=== PATIENT | male | born 1965 | race Caucasian/White ===

== ENCOUNTER 2018-04-23 14:12 | Inpatient (IN) | payer OTHER ==
[~2018-04-23] VITALS: Ht 175.3 cm; Wt 81.6 kg
[2018-04-23] VITALS (7 sets, daily range): BP systolic 73–108; BP diastolic 43–74
[2018-04-23] MEDS ORDERED: IV NORMAL SALINE 1,000ML 1,000 ML IV ONE (14:15)
[2018-04-23] MEDS ORDERED: LORazepam 2 MG/ML VIAL IV ONE (14:15)
[2018-04-23 14:30] LABS: BASO # 0.1 x10^3/uL (0.0-0.2); BASO % 1 % (0-3); EOS # 0.1 x10^3/uL (0.0-0.7); EOS % 2 % (0-3); HEMATOCRIT 46.7 % (39.0-53.0); HEMOGLOBIN 15.8 g/dL (13.0-17.5); LYMPH % 37 % (24-48); MEAN CORPUSCULAR HEMOGLOBIN 29 pg (25-35); MEAN CORPUSCULAR HGB CONC 34 g/dL (31-37); MEAN CORPUSCULAR VOLUME 87 fL (79-100); MONO # 0.4 x10^3/uL (0.0-1.1); MONO % 8 % (0-9); NEUT # 2.8 x10^3uL (1.8-7.7); NEUT % 52 % (31-73); PLATELET COUNT 245 x10^3/uL (140-400); RED BLOOD COUNT 5.38 x10^6/uL (4.30-5.70); RED CELL DISTRIBUTION WIDTH 14.3 % (11.5-14.5); WHITE BLOOD COUNT 5.4 x10^3/uL (4.0-11.0)
[2018-04-23] MEDS ORDERED: levETIRAcetam 500 MG/5 ML VIAL IV ONE (14:39)
[2018-04-23] MEDS ORDERED: IV NORMAL SALINE 1,000ML 1,000 ML IV SCH (14:39)
[2018-04-23] MEDS ORDERED: IV NORMAL SALINE 100ML 100 ML ONE (14:39)
--- NOTE | 2018-04-23 14:39 | PHYS DOC ---
Past History Past Medical History: GERD, Seizure Past Surgical History: Other Alcohol Use: Occasionally Drug Use: None Adult General Chief Complaint Chief Complaint: SEIZURE HPI HPI Patient is a 53 year old male who presents with complaining of seizure. Patient had new-onset of seizure 8 days ago while he was resident of [place] with having several episodes of tonic-clonic seizure with and without loss of consciousness. Patient was admitted at Hospital and had unremarkable CT head and EEG and labs and started on Keppra. Patient had few episode of seizure intermittently since discharging from hospital but today had 4 episodes of seizure including 1 at arrival to ER. Patient did not receive consciousness or urine and bowel incontinence states he feels the seizure coming with feeling of nausea. Patient denies headache and focal neurodeficit. Patient had lack of sleep last night. Review of Systems Review of Systems Constitutional: Denies fever or chills [] Eyes: Denies change in visual acuity, redness, or eye pain [] HENT: Denies nasal congestion or sore throat [] Respiratory: Denies cough or shortness of breath [] Cardiovascular: No additional information not addressed in HPI [] GI: Denies abdominal pain, nausea, vomiting, bloody stools or diarrhea [] : Denies dysuria or hematuria [] Musculoskeletal: Denies back pain or joint pain [] Integument: Denies rash or skin lesions [] Neurologic: Denies headache, focal weakness or sensory changes [] Endocrine: Denies polyuria or polydipsia [] All other systems were reviewed and found to be within normal limits, except as documented in this note. Current Medications Current Medications Current Medications Medications (Trade) Dose Ordered Sig/Chantal Start Time Stop Time Status Last Admin Dose Admin Lorazepam (Ativan) 2 mg 1X ONCE 04/23/18 14:15 04/23/18 14:23 DC 04/23/18 14:21 2 MG Sodium Chloride 1,000 ml @ 1,000 mls/hr 1X ONCE 04/23/18 14:15 04/23/18 15:14 04/23/18 14:20 1,000 MLS/HR Allergies Allergies Allergies Coded Allergies Type Severity Reaction Last Updated Verified fentanyl Allergy Unknown 04/23/18 Yes Physical Exam Physical Exam Constitutional: Well developed, well nourished, mild distress, non-toxic appearance. [] HENT: Normocephalic, atraumatic, bilateral external ears normal, oropharynx moist, no oral exudates, nose normal. [] Eyes: PERRLA, EOMI, conjunctiva normal, no discharge. [] Neck: Normal range of motion, no tenderness, supple, no stridor. [] Cardiovascular:Heart rate regular rhythm, no murmur [] Lungs & Thorax: Bilateral breath sounds clear to auscultation [] Abdomen: Bowel sounds normal, soft, no tenderness, no masses, no pulsatile masses. [] Skin: Warm, dry, no erythema, no rash. [] Back: No tenderness, no CVA tenderness. [] Extremities: No tenderness, no cyanosis, no clubbing, ROM intact, no edema. [] Neurologic: Alert and oriented X 3, normal motor function, normal sensory function, no focal deficits noted. [] Psychologic: Affect normal, judgement normal, mood normal. [] Current Patient Data Vital Signs Vital Signs Date Time Temp Pulse Resp B/P (MAP) Pulse Ox O2 Delivery O2 Flow Rate FiO2 04/23/18 14:18 97.7 76 18 100 Room Air Lab Results Laboratory Tests Test 04/23/18 14:15 White Blood Count 5.4 x10^3/uL (4.0-11.0) Red Blood Count 5.38 x10^6/uL (4.30-5.70) Hemoglobin 15.8 g/dL (13.0-17.5) Hematocrit 46.7 % (39.0-53.0) Mean Corpuscular Volume 87 fL (79-100) Mean Corpuscular Hemoglobin 29 pg (25-35) Mean Corpuscular Hemoglobin Concent 34 g/dL (31-37) Red Cell Distribution Width 14.3 % (11.5-14.5) Platelet Count 245 x10^3/uL (140-400) Neutrophils (%) (Auto) 52 % (31-73) Lymphocytes (%) (Auto) 37 % (24-48) Monocytes (%) (Auto) 8 % (0-9) Eosinophils (%) (Auto) 2 % (0-3) Basophils (%) (Auto) 1 % (0-3) Neutrophils # (Auto) 2.8 x10^3uL (1.8-7.7) Lymphocytes # (Auto) 2.0 x10^3/uL (1.0-4.8) Monocytes # (Auto) 0.4 x10^3/uL (0.0-1.1) Eosinophils # (Auto) 0.1 x10^3/uL (0.0-0.7) Basophils # (Auto) 0.1 x10^3/uL (0.0-0.2) EKG EKG EKG interpreted by me. EKG at 1425 showed normal sinus rhythm at rate of 75, normal axis and intervals, no acute ST and T-wave abnormalities.[] Radiology/Procedures Radiology/Procedures [address] [address] IMAGING REPORT Signed PATIENT: FLORINDA SOLIZ ACCOUNT: [id number] : 1965 LOCATION: ER AGE: 53 SEX: M EXAM STATUS: REG ER ORD. PHYSICIAN: MEDINA MORENO MD REASON: seizure PROCEDURE: CT HEAD WO CONTRAST CT HEAD WO CONTRAST Indication: Seizure Exposure: One or more of the following individualized dose reduction techniques were utilized for this examination: 1. Automated exposure control 2. Adjustment of the mA and/or kV according to patient size 3. Use of iterative reconstruction technique. Comparison: None are available. Contrast: None FINDINGS: Posterior fossa is unremarkable. No evidence of acute intracranial hemorrhage or abnormal extra-axial fluid collection. No evidence of mass effect or midline shift. Ventricles are symmetric in size and configuration. Cortez-white matter distinction is intact. Visualized orbits are unremarkable. Visualized paranasal sinuses and mastoids are clear. No acute calvarial abnormality. Impression:Negative for acute intracranial hemorrhage or mass effect. Electronically signed by: Benjamin Asencio MD (04/23/2018 2:49 PM) [id number] DICTATED AND SIGNED BY: BENJAMIN ASENCIO MD DATE: 04/23/18 [id number] CC: MEDINA MORENO MD; TIANA MAY DO ~ Course & Med Decision Making Course & Med Decision Making Pertinent Labs and Imaging studies reviewed. (See chart for details) Evaluation of patient in ER showed 53-year-old female patient with history of newly started seizure one week ago and having several episodes of seizure today. Patient had 1 episode of tonic-clonic seizure in emergency room that was weakness with near and other staff without loss of consciousness. Patient did not have postictal condition. Labs and CT head was unremarkable. Dr Pond accepted admission at 1430 and on-call neurologist Dr. Hudson was consulted at 1435 and recommended to start 1 g of Keppra IV. Patient did not have any episodes of seizure after having Ativan and IV fluid in ER and admitted to ICU. Dragon Disclaimer Dragon Disclaimer This electronic medical record was generated, in whole or in part, using a voice recognition dictation system. Departure Departure: Impression: Primary Impression: Status epilepticus Disposition: ADMITTED INPATIENT (at 1437) Admitting Physician: Eugenio Pond (accepted admission at 1430) Condition: GUARDED Referrals: TIANA MAY DO (PCP) MEDINA MORENO MD Apr 23, 2018 14:39
[2018-04-23 14:42] LABS: ALBUMIN 4.2 g/dL (3.4-5.0); ALBUMIN/GLOBULIN RATIO 1.2 (1.0-1.7); CREATININE 1.1 mg/dL (0.7-1.3); GFR 69.5; POTASSIUM 3.7 mmol/L (3.5-5.1); TOTAL BILIRUBIN 0.4 mg/dL (0.2-1.0); TOTAL PROTEIN 7.6 g/dL (6.4-8.2)
--- NOTE | 2018-04-23 14:52 | RAD ---
CT HEAD WO CONTRAST Indication: Seizure Exposure: One or more of the following individualized dose reduction techniques were utilized for this examination: 1. Automated exposure control 2. Adjustment of the mA and/or kV according to patient size 3. Use of iterative reconstruction technique. Comparison: None are available. Contrast: None FINDINGS: Posterior fossa is unremarkable. No evidence of acute intracranial hemorrhage or abnormal extra-axial fluid collection. No evidence of mass effect or midline shift. Ventricles are symmetric in size and configuration. Cortez-white matter distinction is intact. Visualized orbits are unremarkable. Visualized paranasal sinuses and mastoids are clear. No acute calvarial abnormality. Impression:Negative for acute intracranial hemorrhage or mass effect. Electronically signed by: Benjamin Asencio MD (04/23/2018 2:49 PM) [id number]
[2018-04-23 15:29] LABS: AMPHETAMINE/METHAMPHETAMINE NEG (NEG); BARBITURATES NEG (NEG); BENZODIAZEPINES NEG (NEG); BILIRUBIN,URINE NEG (NEG); CANNABINOIDS NEG (NEG); CLARITY,URINE CLEAR; COCAINE NEG (NEG); COLOR,URINE YELLOW; GLUCOSE,URINE NEG (NEG); METHADONE NEG (NEG); OPIATES NEG (NEG); PHENCYCLIDINE NEG (NEG)
[2018-04-23 15:33] LABS: BACTERIA,URINE 0 /HPF (0-FEW); NITRITE,URINE NEG (NEG); SQUAMOUS EPITHELIAL CELL,UR FEW /LPF; UROBILINOGEN,URINE 0.2 mg/dL (0.2 mg/dL)
--- NOTE | 2018-04-23 16:54 | EKG ---
[address] [address] Test Date: 2018-04-23 Test Time: 14:21:29 Pat Name: FLORINDA SOLIZ Department: Room: [place] [address] Gender: M Instruction Dean: : 1965 Requested By: MEDINA MORENO Order Number: [id number] Reading MD: Barrie Diaz Measurements Intervals Sawyer Rate: 75 P: 38 OH: 216 QRS: 20 QRSD: 86 T: 53 QT: 376 QTc: 422 Interpretive Statements SINUS RHYTHM NORMAL ECG Electronically Signed On 04-24-2018 10:35:55 [employer] by Barrie Diaz
[2018-04-23] MEDS ORDERED: LORazepam 2 MG/ML VIAL IV PRN (17:15)
[2018-04-24] VITALS (10 sets, daily range): BP systolic 73–104; BP diastolic 50–75
--- NOTE | 2018-04-24 06:08 | CONS ---
DATE OF CONSULTATION: 04/23/2018 NEUROLOGICAL CONSULTATION REFERRING PHYSICIAN: Eugenio Pond MD REASON FOR CONSULTATION: Rule out seizure. HISTORY OF PRESENT ILLNESS: This is a 53-year-old right-handed male who was admitted through Emergency Room after he presented with recent history of seizure-like activities. According to the patient, he lives in [facility] and he is moving to [facility]. He has had recurrent spells described as by his as a sudden onset of stiffness of entire his body, lasted 2 minutes. The first spells was 8 days ago during his sleep. He did not have any tonic-clonic movements, but described as stiffness of the upper extremities, not able to communicate for approximately 2 minutes. The patient did recall most of the part of this spell, but he denies any bowel or bladder incontinence, nor did he have any tonic-clonic movements or post-event confusion or disorientation. The patient had a similar episode a few days later when he was in a hot tub with his and friends, lasted approximately 1 minute. Subsequently, the couple decided to go to the hospital. He was evaluated in the Emergency Room and found to have another spells of stiffness as described above. Subsequently, he was admitted for further evaluation to rule out seizure. The patient did stay overnight in the hospital where a brain MRI and head CT scan along with electroencephalogram were reportedly normal. He was seen by a neurologist and he was started on Keppra 500 mg twice daily. Four days later, he was traveling back to the [facility] [place], on his way the witnessed another spells, but it was less severe and lasted 1 minute. Today, the patient had a similar episode of stiffness. He was evaluated in the Emergency Room at [facility] by Dr. Payne and he was started on loading dose of Keppra because she witnessed a seizure-like activity, but described by the as similar episodes of short term stiffness. The patient has had longstanding history of abnormal movements during sleep of several years' duration. He was treated by clonazepam with some relief of his symptoms. The patient stated he has had a history of depressions and anxiety and he is concerned about having early stages of Alzheimer as his mom had Alzheimer dementia along with some other family members. Currently, the patient denies headaches, visual disturbances, nausea, vomiting, chest pain, shortness of breath or palpitation, dysarthria, dysphagia, or vertigo. He denies weakness or paresthesia. 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 FAMILY HISTORY: His father in early age of complication of emphysema. His mother of Parkinson disease complications and Alzheimer's dementia. He has a brother of dementia at age of 70. SOCIAL HISTORY: The patient is . He denies smoking, but he drinks alcohol occasionally and on weekends. He had 2 daughters. He denies illegal drug use. CURRENT HOME MEDICATIONS: Keppra 500 mg twice daily and clonazepam 1 tablet at night. ALLERGIES: FENTANYL. REVIEW OF SYSTEMS: A 10-point review of system was performed as mentioned above in history of present illness, otherwise unremarkable. PHYSICAL EXAMINATION: GENERAL: Well-developed, well-nourished male, not in acute distress. He weighs 180 pounds, height 69 inches. VITAL SIGNS: Blood pressure 96/64, respiratory rate 12, pulse is 82, temperature 97.9, oxygen saturation 100% on room air. HEENT: Normocephalic, atraumatic, otherwise unremarkable. NECK: Supple. Negative for carotid bruit, lymphadenopathy, or thyromegaly. LUNGS: Clear to A and P. CARDIOVASCULAR: Regular rhythm, normal S1, S2. ABDOMEN: Soft. Bowel sounds positive. EXTREMITIES: Negative for cyanosis, clubbing, or pitting edema. NEUROLOGICAL EXAMINATION: MENTAL STATUS: The patient is alert and oriented x 3. The speech is fluent. There is no language dysfunction. The patient recalls 2/3 after 1 and 3 minutes. Judgment abstract and thinking are normal. The patient denies hallucination or delusion. CRANIAL NERVES: Visual anderson are full. The pupils are reactive to light and accommodation. The extraocular movements are intact. There is no nystagmus. There is no facial motor or sensory deficit. Hearing is intact bilaterally. The palate is elevated symmetrically. Sternocleidomastoid muscles are powerful bilaterally. The patient shrugs his shoulders symmetrically, protrudes his tongue in the midline without fasciculation or atrophy. MOTOR: No focal muscle bulk was seen. The tone is normal. The strength is 5/5 throughout. SENSORY: Revealed normal pinprick, light touch, vibratory and position senses. Deep tendon reflexes were symmetric and hypoactive at 1/4 throughout. Gait and coordination were normal. LABORATORY DATA: CBC revealed white blood cells of 5400, hemoglobin 15.8, hematocrit 46.7, platelet count was 245,000. Chemistry revealed sodium of 141, potassium 3.7, chloride 102, CO2 of 29, BUN 14, creatinine 1.1, glucose 147, calcium 9. Liver enzymes are normal. Urinalysis is negative for urinary tract infections and urine drug screen is negative. DIAGNOSTIC: Initial nonenhanced head CT scan revealed negative for acute intracranial changes or process. IMPRESSION: 1. Recurrent spells described as stiffness of the upper extremity without significant post-event confusion with a recent history of a normal brain MRI, head CT scan, and EEG raise questions about the etiology of his spells and possible underlying psychogenic seizure or nonepileptic seizures. 2. 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 3. Possible underlying anxiety and depression. RECOMMENDATIONS: 1. We will continue with current management. 2. We will arrange for a prolonged video monitoring EEG to rule out epileptic versus nonepileptic seizure. M Markos WAYNE MD DR: JAVIER/brooks JOB#: [id number] / [id number]
[2018-04-24] MEDS ORDERED: PANT40TA3 PO (08:17)
[2018-04-24] MEDS ORDERED: PANTOPRAZOLE 40 MG TABLET. PO SCH (08:30)
[2018-04-24] MEDS ORDERED: levETIRAcetam 500 MG TABLET PO SCH (09:30)
--- NOTE | 2018-04-24 13:23 | HP ---
ADMIT DATE: 04/24/2018 HISTORY OF PRESENT ILLNESS: The patient is a 53-year-old male patient, who apparently came to the Emergency Room yesterday complaining of seizures. He apparently had new onset of seizures started about 8 days ago while residing at [place]. He was admitted to the hospital there had an MRI and CT scan as well as EEG and lab work up and started on Keppra. He apparently has had intermittent episodes since discharge in about 4 days and on the day of admission he had 4 episodes of seizures including one at the arrival to the Emergency Room. The patient did not lose consciousness and he has not had bowel or bladder incontinence. He feels the seizure was coming with feeling of nausea. The patient denies any headache or focal neuro deficit. The patient had lack of sleep last night. He was extensively investigated. He has had a CT scan of the head, which showed that there is no evidence of acute intracranial hemorrhage or abnormal extraaxial fluid collection, no evidence of mass effect or midline shift. Ventricles are symmetric in size and configuration. Cortez-white matter distinction is intact. Visualized orbits are unremarkable. Visualized per nasal sinuses and mastoid air cells are clear and no acute calvarial abnormality. He apparently was given loading dose of Keppra and was admitted for further evaluation to consult the neurologist. PAST MEDICAL HISTORY: Significant for REM behavioral disturbances for which he was on clonazepam. Apparently, he took it for years and decided to discontinue it about 6 months ago. He was on 0.5 mg at bedtime. 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 PAST SURGICAL HISTORY: Significant for facial reconstruction surgery. At that time, he also had tracheostomy after he was kicked by a horse, he had left thumb surgery, arthroscopic surgery of both knees, tonsillectomy, colonoscopy and polypectomy, multiple transesophageal echocardiogram to evaluate his myxoma. The last about 10 years ago at [facility] where at one point in time a decision was made to remove the myxoma and cardiothoracic surgeon changed their mind. SOCIAL HISTORY: He is . They have 1 daughter and 2 grandsons. He has never smoked. Drinks alcohol occasionally. He is retired from the [employer]. 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 ALLERGIES: He is allergic to FENTANYL. MEDICATIONS: He is currently on following medications: He is on Keppra 500 mg twice a day, Protonix 40 mg once a day, and Claritin 10 mg once a day for seasonal allergies. FAMILY HISTORY: He had one sister because of cancer. One brother has Alzheimer disease and another brother has diabetes. He has 3 sisters that are all older than him. His father in his 70s because of COPD. His mother at age of 84 because of dementia. REVIEW OF SYSTEMS: The patient denied any blurring of vision, cataract, glaucoma or macular degeneration. Denied any earache, tinnitus or sensorineural deafness. Denied any nosebleeds, stuffy nose or postnasal drip. Denied any sore throat, sore tongue, toothache, hoarseness of voice or difficulty swallowing. Denied any nausea, vomiting, diarrhea or constipation. Denied any hematemesis, melena or hematochezia. Denied any dysuria, frequency or hematuria. He did complain of frequency and nocturia. Denied any chest pain, shortness of breath, orthopnea, paroxysmal nocturnal dyspnea. Denied any cough, phlegm or hemoptysis. Denied any chills, rigors or fever. PHYSICAL EXAMINATION: GENERAL: On examining him, he looked well and was clearly in no apparent respiratory distress. No pallor, jaundice, cyanosis, or thyromegaly. No jugular venous distension. No limb edema. VITAL SIGNS: His heart rate was 76, blood pressure was 110/70, temperature was 97.7, respiratory rate was 18 and oxygen saturation was 100% on room air. HEAD, EYES, EARS, NOSE AND THROAT: Showed normocephalic, atraumatic. NECK: Supple. HEART: Showed normal first and second heart sounds with no gallop, rub or murmur. CHEST: Clear to auscultation. No crepitation or rhonchi. ABDOMEN: Distended, soft, nontender. No guarding or rigidity. No organomegaly. All hernial orifice intact. Bowel sounds normal. NEUROLOGIC: He is awake, alert, responding appropriately. All cranial nerves intact. EXTREMITIES: He moves extremities without difficulty. LABORATORY DATA: On arrival showed a white cell count 5400, hemoglobin 15.8, hematocrit 46.7, MCV 87 and platelet count 245,000. Serum sodium was 141, potassium 3.7, chloride 102, bicarbonate 29, anion gap of 10, BUN 14, creatinine 1.1, estimated GFR was 69 mL per minute, his glucose 147, calcium was 9. Total bilirubin, AST, ALT, alkaline phosphatase were normal. Total protein 7.6, albumin was 4.2. His urinalysis was essentially unremarkable. It was negative for nitrite and leukocyte esterase. There was only 1-2 rbc's, 1-4 wbc's and no bacteria and urine toxicology screen was negative. CT scan of the head showed that the posterior fossa is unremarkable. No evidence of acute intracranial hemorrhage or abnormal extraaxial fluid collection, no evidence of mass effect or midline shift. Ventricles are symmetric in size and configuration. Cortez-white matter distinction is intact. Visualized orbits are unremarkable. Visualized paranasal sinuses and mastoid air cells are clear. No acute calvarial abnormality. ASSESSMENT AND PLAN: The patient was admitted. We will consult Dr. Hudson and obviously decide the further management accordingly. HARPREET HOLDEN MD DR: PATRICE/brooks JOB#: [id number] / [id number]
[2018-04-24] MEDS ORDERED: LEVE500T56 PO (13:43)
[2018-04-24] MEDS ORDERED: LORA10TA68 PO (13:43)
--- NOTE | 2018-04-24 16:29 | DS ---
DATE OF DISCHARGE: 04/24/2018 HOSPITAL COURSE: The patient is a 53-year-old male patient, who came with new onset of seizures that seems to be atypical, mostly presents with stiffness of his extremities without tonic-clonic seizures. He does not bite his tongue or become incontinent. He does not have any postictal state. He was apparently evaluated at the hospital in [place], [place]. He had an MRI, CT scan, EEG, and was started on Keppra and he moved recently here. Yesterday, he had four episodes. One was witnessed at the Emergency Room. He was given a loading dose of Keppra. He was seen in consultation by Dr. Hudson, who commended the prolonged video monitoring EEG to rule out epileptic versus nonepileptic seizures. Unfortunately, he has to go through his primary care physician at [facility], who fortunately has an appointment to see next , 2 days now, for Antonio to authorize this procedure. They have been in discussion with him and his . I actually recommended that if he has any further episodes referred him straight to . PHYSICAL EXAMINATION: GENERAL: Prior to discharge the patient was sitting, propped up in bed, in no apparent respiratory distress. No pallor, jaundice, cyanosis, or thyromegaly. No jugular venous distension. No lower limb edema. VITAL SIGNS: His heart rate was 83, blood pressure was 102/75, temperature was 98.4, respiratory rate was 16, and oxygen saturation was 95%. HEAD, EYES, EARS, NOSE AND THROAT: Normocephalic, atraumatic. NECK: Supple. HEART: Showed normal first and second heart sounds. No gallop, rub or murmur. CHEST: Clear to auscultation. No crepitation or rhonchi. ABDOMEN: Distended, soft, nontender. NEUROLOGIC: He was awake, alert, responding appropriately. All cranial nerves intact. EXTREMITIES: He moves extremities without difficulty. LABORATORY DATA: His lab work all within normal range. DISCHARGE MEDICATIONS: He was discharged home to continue on Protonix 40 mg once a day, Keppra 500 mg twice a day and loratadine for Claritin 10 mg once a day. FINAL DISCHARGE DIAGNOSES: Recurrent episodes what seems to be deafness his upper extremities without significant post-event confusion with recent normal brain MRI, CT scan and EEG, longstanding history of movement disorders during sleep and has had history of traumatic brain injury and also right atrial myxoma. HARPREET HOLDEN MD DR: PATRICE/brooks JOB#: [id number] / [id number]
--- NOTE | 2018-04-24 20:50 | PN ---
DATE: 04/24/2018 SUBJECTIVE: The patient denies any new medical or neurological complaints. He has not had any recurrent spells since admission. OBJECTIVE: GENERAL: Well-developed, well-nourished male, not in acute distress. VITAL SIGNS: Afebrile, blood pressure 98/69, respiratory rate 16, pulse is 62 and regular, oxygen saturation 95% on room air. HEENT: Normocephalic, atraumatic, otherwise unremarkable. NECK: Supple. Negative for carotid bruit, lymphadenopathy or thyromegaly. LUNGS: Clear to A and P. CARDIOVASCULAR: Regular rate and rhythm, normal S1, S2. There is no S3, S4, or murmur. ABDOMEN: Soft. Bowel sounds positive. EXTREMITIES: Negative for cyanosis, clubbing, pitting edema. NEUROLOGICAL EXAM: Mental Status: The patient's mental status and cranial nerves are intact. No focal motor or sensory deficit. Deep tendon reflexes were symmetric and hypoactive with absent Achilles responses. Gait and coordination are normal. IMPRESSION: 1. Recurrent spells of seizure-like activities, etiology uncertain, rule out epileptic versus nonepileptic seizures. 2. Multiple psychiatric problems that include depressions and anxiety. RECOMMENDATIONS: 1. We will continue with current management with Keppra 500 mg b.i.d. for now. 2. We will arrange for a prolonged EEG monitoring to be done on an outpatient and can be also done at home. We will arrange with his insurance company to get preauthorization for that procedure. M Markos WAYNE MD DR: JAVIER/brooks JOB#: [id number] / [id number]
== END 2018-04-24 14:00 | disposition home or self-care (01) | DRG 101 ==
LOC: ER 14:12 → ICU 14:36
PROVIDERS: ADMIT Internal Medicine; ATTEND Internal Medicine
DX: G40.901 Epilepsy, unspecified, not intractable, with status epilepticus (principal); F41.9 Anxiety disorder, unspecified; D15.1 Benign neoplasm of heart; H91.90 Unspecified hearing loss, unspecified ear; F32.9 Major depressive disorder, single episode, unspecified; K21.9 Gastro-esophageal reflux disease without esophagitis; Z82.0 Family history of epilepsy and other diseases of the nervous system; Z82.5 Family history of asthma and other chronic lower respiratory diseases; Z83.3 Family history of diabetes mellitus; Z87.820 Personal history of traumatic brain injury; Z88.8 Allergy status to other drugs, medicaments and biological substances
CPT/HCPCS: 36415; 70450; 80053; 80307; 81001; 85025; 87641; 93005; 96374; 96375; J1953; J2060; 99285-25; J7030